=== PATIENT | male | born 1970 | race Caucasian/White ===

== ENCOUNTER 2021-06-11 06:41 | Day surgery (SDC) | payer OTHER, SELFPAY ==
--- NOTE | 2021-06-10 13:22 | HO.ANESPROP2 ---
Documented by User: Sloane Perez NP 06/10/21 13:23 HPI - Anesthesia Eval Consult details Narrative: 50yo M for Colonoscopy [facility] Past Medical History Medical History (Updated 06/05/21 @ 10:52 by Adriana Kincaid RN) Congenital single kidney Spontaneous pneumothorax Surgical History Surgical History (Updated 06/05/21 @ 10:52 by Adriana Kincaid RN) Hx of appendectomy Social History Social History Advance Directives: No Advance Directives Information Provided: Yes Advance Directives on File: No Meds Allergies Allergy/AdvReac Type Severity Reaction Status Date / Time No Known Allergies Allergy Verified 06/05/21 10:52 Home Medications Medication Instructions Recorded Confirmed Last Taken Type Co Q-10 1 cap PO DAILY 06/05/21 06/05/21 Unknown History multivitamin 1 tab PO DAILY 06/05/21 06/05/21 Unknown History Exam Exam Date and Time: June 10, 2021 1322 Height,Weight and Vital Signs: Height 6 ft 2 in Weight 106.141 kg Assessment and Plan Assessment Anesthesia Assessment: Chart Reviewed Documented by User: Bel Carr MD 06/11/21 07:10 [facility] Past Medical History Medical History (Updated 06/05/21 @ 10:52 by Adriana Kincaid RN) Congenital single kidney Spontaneous pneumothorax Family History Family history of problems with anesthesia: No Surgical History Surgical History (Updated 06/05/21 @ 10:52 by Adriana Kincaid RN) Hx of appendectomy History of Problems with Anesthesia: No Social History Social History Advance Directives: No Advance Directives Information Provided: Yes Advance Directives on File: No Meds Allergies Allergy/AdvReac Type Severity Reaction Status Date / Time No Known Allergies Allergy Verified 06/05/21 10:52 Home Medications Medication Instructions Recorded Confirmed Last Taken Type Co Q-10 1 cap PO DAILY 06/05/21 06/05/21 Unknown History multivitamin 1 tab PO DAILY 06/05/21 06/05/21 Unknown History Exam Airway Mallampati Class: II TM Dist: >3cm Neck ROM: Full Assessment and Plan Assessment Anesthesia Assessment: Anesthesia Plan Discussed Final Anesthetic Review Family History of Problems with Anesthesia: No History of Problems with Anesthesia: No NPO: Yes ASA Class: II Final Preanesthetic Review: No Changes in Pt Med Stat, Meds/Allgs Chart Reviewed, Consent Obtained/Reviewed and Anes Risks/Benef Reviewed Patient Risk: Low Procedure Risk: Low Anesthetic Plan Anesthetic Plan: MAC: Disposition: Standard PACU
[2021-06-11 07:05] VITALS: BP 122/92; PULSE 69; RESP 16; TEMP 36.4; O2SAT 98
[2021-06-11] MEDS: Lactated Ringers 1,000 ML 100 ML IVCONT (07:16)
[2021-06-11 08:30] VITALS: BP 95/61; PULSE 65; RESP 20; TEMP 36.2; O2SAT 99
--- NOTE | 2021-06-11 08:30 | PM.OP ---
Brief Operative Note Date of Service: 06/10/21 Pre-op diagnosis: Screening Post-op diagnosis: other (Diverticulosis) Procedure: Colonoscopy to cecum and TI Surgeon: Doug Lieberman Anesthesia: MAC Was an Microfilm Equipment Inspector used for this Procedure?: No Estimated blood loss (mL): 0 Pathology: none sent Condition: stable Disposition: PACU
[2021-06-11 08:45] VITALS: BP 135/81; PULSE 66; RESP 18; TEMP 36.2; O2SAT 98
--- NOTE | 2021-06-11 09:02 | OP_ITS ---
SURGEON: Doug Lieberman MD INDICATIONS: The patient presents for evaluation of colorectal cancer screening. Full consent was obtained from him for this, including risks of bleeding and perforation. PREOPERATIVE DIAGNOSIS: Colorectal cancer screening. POSTOPERATIVE DIAGNOSIS: PROCEDURE PERFORMED: Colonoscopy to the cecum and terminal ileum. ESTIMATED BLOOD LOSS: COMPLICATIONS: ANESTHESIA: Monitored anesthesia care. ASSISTANTS: SPECIMENS: POSTOPERATIVE DIAGNOSES: Colorectal cancer screening, mild sigmoid diverticulosis, small internal hemorrhoids. DESCRIPTION OF PROCEDURE: The patient was placed in the left lateral decubitus position. The digital rectal exam revealed no abnormalities. The Olympus video pediatric colonoscope was entered into the rectum and advanced easily to the cecum. Once in the cecum, I did identify normal-appearing cecal pouch with appendiceal orifice and a normal-appearing ileocecal valve. The terminal ileum was cannulated and appeared normal. Scope was withdrawn back in the colon. The entire cecum and ileocecal valve appeared normal. The scope was slowly withdrawn assessing all mucosal surfaces carefully. Preparation was excellent. I did not visualize any sign of polyps, colitis, nor angiodysplasia. There was a mild amount of sigmoid diverticulosis. In the rectum, scope was retroflexed visualizing small internal hemorrhoids, but no other pathology. The rectal mucosa appeared normal. Scope was straightened and withdrawn from the patient. He tolerated the procedure well and was returned to recovery area in stable condition. IMPRESSION: 1. Mild sigmoid diverticulosis. 2. Small internal hemorrhoids. PLAN: Given his negative exam and negative family history, I would recommend a followup colonoscopy in 10 years for screening. He will otherwise see me on a p.r.n. basis. MD PAOLA Jiang/ZAINAL / [phone]
== END 2021-06-11 09:13 | disposition home or self-care (01) ==
PROVIDERS: PCP Internal Medicine; Visit Provider Internal Medicine
PROC: 0DJD8ZZ Inspection of Lower Intestinal Tract, Via Natural or Artificial Opening Endoscopic (ICD-10-PCS; CPT 45378; principal; 2021-06-11 07:30)
DX: Z12.11 Encounter for screening for malignant neoplasm of colon (principal); K57.30 Diverticulosis of large intestine without perforation or abscess without bleeding; K64.8 Other hemorrhoids; Q60.0 Renal agenesis, unilateral
CPT/HCPCS: 45378

== ENCOUNTER → 2021-08-07 10:43 | Outpatient (BNVA) | payer OTHER, SELFPAY | PROVIDERS: PCP Internal Medicine; Referring Provider Internal Medicine; Visit Provider Surgery | DX: Z13.89 Encounter for screening for other disorder (principal) ==

== ENCOUNTER → 2022-02-03 08:28 | Outpatient (REF) | payer OTHER, SELFPAY ==
--- NOTE | 2022-02-03 08:38 | CA_ITS ---
Acquisition Time: 2022-02-03 08:52:11 Total Exercise Time: 00:11:03 Test Indications: R07.89 Other Chest Pain Medications: See H Protocol: LAUREN Max HR: 157 BPM 93% of Pred: 168 BPM Max BP: 152/066 mmHG Max Work Load: 13.4 METS Exercise stress test with exercise 11 min 3 sec of Lauren protocol,achieving 92% MPHR, 13.4 METs, with fatigue and request to stop, without anginal symptoms, with isolated PAC, with normotensive response to exercise, without EKG changes meeting criteria for ischemia. Test reviewed with Dr Sanford. Referred By: Hermes Sanford Overread By: TESS DUMONT
== END ==
LOC: HO.CARD 08:28
PROVIDERS: PCP Internal Medicine; Visit Provider Internal Medicine Cardiovascular Disease
DX: R07.89 Other chest pain (principal)
CPT/HCPCS: 93017

== ENCOUNTER 2022-04-16 08:13 | Outpatient (REF) | payer OTHER, SELFPAY ==
--- NOTE | ~2022-04-16 | XR_ITS ---
EXAMINATION: XR CERVICAL SPINE CLINICAL INFORMATION: Neck pain right side COMPARISON: None TECHNIQUE: 6 views of the cervical spine, inclusive of flexion and extension views, were obtained. FINDINGS: The dens is intact. Lateral masses are normally positioned. Lung apices are clear. Normal prevertebral soft tissues. Normal sagittal alignment. Anterior disc calcification at C5-C6. There may be mild osseous neuroforaminal narrowing bilaterally at C3-C4 and C4-C5 although this could be projectional XR/XR cervical spine 5V IMPRESSION: Degenerative changes as described above.
== END 2022-04-16 08:14 | disposition home or self-care (01) ==
LOC: HO.XRAY 08:13
PROVIDERS: PCP Internal Medicine; Visit Provider Internal Medicine
DX: M54.2 Cervicalgia (principal)
CPT/HCPCS: 72050

== ENCOUNTER 2023-05-14 09:29 | Outpatient (REF) | payer OTHER, SELFPAY ==
[2023-05-14 12:26] LABS: Prostate Specific Antigen 0.77 ng/mL (<0.05-4.0)
[2023-05-14 12:31] LABS: Alanine Aminotransferase 17 U/L (0-40); Albumin Level 4.5 g/dL (3.5-5.0); Alkaline Phosphatase 72 U/L (39-117); Anion Gap 12 (12-20); Aspartate Amino Transferase 18 U/L (5-37); Bilirubin Direct 0.3 mg/dL (0.0-0.5); Bilirubin Total 0.6 mg/dL (0.0-1.0); Blood Urea Nitrogen 20 mg/dL (9-16); Calcium 9.4 mg/dL (8.4-10.2); Carbon Dioxide 27 mmol/L (22-29); Chloride 106 mmol/L (96-108); Cholesterol 176 mg/dL (<200); Estimated Glomerular Filt Rate > 60; Glucose Random 92 mg/dL (60-115); HDL Cholesterol 44 mg/dL (>40); LDL Cholesterol Calculated 119 mg/dL (<100); Potassium 4.6 mmol/L (3.3-5.1); Sodium 140 mmol/L (135-145); Total Protein 8.1 g/dL (6.5-8.0); Triglycerides 66 mg/dL (<150)
[2023-05-14 12:51] LABS: Reflex LDLD? No
[2023-05-19 15:17] LABS: Testosterone, Free 58.1 pg/mL (35.0-155.0); Testosterone, Total 387 ng/dL (250-1100)
== END 2023-05-14 09:30 | disposition home or self-care (01) ==
LOC: HO.HHCL 09:29
PROVIDERS: Visit Provider Internal Medicine
DX: Z12.5 Encounter for screening for malignant neoplasm of prostate (principal); R35.1 Nocturia; R68.82 Decreased libido; Q60.2 Renal agenesis, unspecified
CPT/HCPCS: 36415; 80048; 80061; 80076; 84153; 84402; 84403

== ENCOUNTER 2024-09-29 06:10 | Outpatient (REF) | payer OTHER, SELFPAY ==
[2024-09-29 07:45] LABS: Alanine Aminotransferase 18 U/L (0-40); Albumin Level 4.5 g/dL (3.5-5.0); Alkaline Phosphatase 83 U/L (39-117); Anion Gap 12 (12-20); Aspartate Amino Transferase 27 U/L (5-37); Bilirubin Total 0.5 mg/dL (0.0-1.0); Blood Urea Nitrogen 18 mg/dL (9-16); Calcium 9.5 mg/dL (8.4-10.2); Carbon Dioxide 29 mmol/L (22-29); Chloride 104 mmol/L (96-108); Cholesterol 151 mg/dL (<200); Estimated Glomerular Filt Rate > 60; Glucose Random 96 mg/dL (60-115); HDL Cholesterol 42 mg/dL (>40); LDL Cholesterol Calculated 93 mg/dL (<100); Potassium 4.8 mmol/L (3.3-5.1); Sodium 140 mmol/L (135-145); Total Protein 7.5 g/dL (6.5-8.0); Triglycerides 81 mg/dL (<150)
[2024-09-29 08:02] LABS: Prostate Specific Antigen Scr 0.85 ng/mL (<0.05-4.0)
== END 2024-09-29 06:11 | disposition home or self-care (01) ==
LOC: HO.LAB 06:10
PROVIDERS: PCP Internal Medicine; Visit Provider Internal Medicine
DX: Z00.00 Encounter for general adult medical examination without abnormal findings (principal); E66.3 Overweight; Z12.5 Encounter for screening for malignant neoplasm of prostate
CPT/HCPCS: 36415; 80053; 80061; 84153